=== PATIENT | female | born 1940 | race Caucasian/White ===

== ENCOUNTER 2021-07-26 20:12 | Inpatient (IN) ==
[2021-07-27] MEDS ORDERED: Nitroglycerin 0.4 MG TAB.SUBL SL PRN (21:14)
[2021-07-27] MEDS ORDERED: Dextrose Gel 15 GM/37.5 ML TUBE PO PRN ×2 (21:17)
[2021-07-27] MEDS ORDERED: D5% in Water 1,000 ML IVC PRN (21:17)
[2021-07-27] MEDS ORDERED: *HR* Dextrose 50 % in Water (Vial) 50 ML VIAL IVP PRN (21:17)
[2021-07-28] MEDS: *HR* Enoxaparin 30 MG/0.3 ML SYRINGE SQ SCH (06:07)
[2021-07-28 08:10] LABS: Calcium 8.3 mg/dL (8.6-10.3); Potassium 4.3 mEq/L (3.5-5.1)
[2021-07-28 08:46] LABS: Basophils % 0.3 %; Eosinophils # 0.2 K/mcL (0.0-0.6); Eosinophils % 2.5 %; Hematocrit 24.6 % (35.3-44.9); Hemoglobin 8.4 g/dL (11.5-15.4); Immature Granulocytes % 0.3 % (0-4); Lymphocytes # 1.5 K/mcL (0.6-4.6); Lymphocytes % 23.2 %; Mean Corpuscular HGB Conc 34.1 g/dL (31.6-35.5); Mean Corpuscular Hemoglobin 31.8 pg (28.0-33.3); Mean Corpuscular Volume 93.2 fL (83.0-100.0); Mean Platelet Volume 13.1 fL (9.4-12.4); Monocytes # 0.4 K/mcL (0.0-1.3); Neutrophils # 4.2 K/mcL (1.6-8.9); Platelet Count 180 K/mcL (140-400); Red Blood Count 2.64 M/mcL (3.82-4.97); Red Cell Distribution Width 13.7 % (11.5-14.5); Segmented Neutrophils % 66.7 %; White Blood Count 6.3 K/mcL (4.3-11.1)
[2021-07-28] MEDS: Cyanocobalamin (B-12) 1,000 MCG TABLET PO SCH (09:37)
[2021-07-28] MEDS: Aspirin Enteric Coated 81 MG Tablet PO SCH (09:37)
[2021-07-28] MEDS: GlipiZIDE 5 MG TABLET PO SCH (09:37)
[2021-07-28] MEDS: allopurinoL 100 MG TABLET PO SCH ×2 (09:37→22:19)
[2021-07-28] MEDS: Isosorbide MONOnitrate (24 HR) 30 MG TAB.ER.24H PO SCH (09:37)
[2021-07-28] MEDS: Furosemide 40 MG TABLET PO SCH (09:38)
[2021-07-28] MEDS: Metoprolol XL (24 HR) Succ 25 MG TAB.ER.24H PO SCH (09:38)
[2021-07-28] MEDS: Ranolazine 500 MG TAB.ER.12H PO SCH ×2 (09:38→22:19)
[2021-07-28] MEDS: Insulin DETEMIR 100 UNIT/ML X5UNITS SUBQ SCH ×2 (09:38→22:20)
[2021-07-28] MEDS: Insulin LISPRO 300 UNITS/3 ML VIAL SUBQ SCH ×3 (09:44→19:27)
[2021-07-28] MEDS ORDERED: Insulin DETEMIR 100 UNIT/ML per UNIT SUBQ ONE (22:10)
[2021-07-28] MEDS: cephALEXin 500 MG CAPSULE PO SCH (22:20)
[2021-07-29] MEDS: *HR* Enoxaparin 30 MG/0.3 ML SYRINGE SQ SCH (06:08)
[2021-07-29] MEDS: Insulin DETEMIR 100 UNIT/ML X5UNITS SUBQ SCH ×2 (09:14→20:54)
[2021-07-29] MEDS: Insulin LISPRO 300 UNITS/3 ML VIAL SUBQ SCH ×3 (09:14→16:34)
[2021-07-29] MEDS: Isosorbide MONOnitrate (24 HR) 30 MG TAB.ER.24H PO SCH (09:37)
[2021-07-29] MEDS: Furosemide 40 MG TABLET PO SCH (09:38)
[2021-07-29] MEDS: cephALEXin 500 MG CAPSULE PO SCH ×2 (09:38→20:53)
[2021-07-29] MEDS: GlipiZIDE 5 MG TABLET PO SCH (09:38)
[2021-07-29] MEDS: Aspirin Enteric Coated 81 MG Tablet PO SCH (09:38)
[2021-07-29] MEDS: allopurinoL 100 MG TABLET PO SCH ×2 (09:38→20:53)
[2021-07-29] MEDS: Cyanocobalamin (B-12) 1,000 MCG TABLET PO SCH (09:40)
[2021-07-29] MEDS: Metoprolol XL (24 HR) Succ 25 MG TAB.ER.24H PO SCH (09:40)
[2021-07-29] MEDS: Ranolazine 500 MG TAB.ER.12H PO SCH ×2 (09:40→20:53)
[2021-07-30] MEDS: *HR* Enoxaparin 30 MG/0.3 ML SYRINGE SQ SCH (06:33)
[2021-07-30] MEDS: Insulin DETEMIR 100 UNIT/ML X5UNITS SUBQ SCH (10:01)
[2021-07-30] MEDS: Insulin LISPRO 300 UNITS/3 ML VIAL SUBQ SCH ×3 (10:01→17:39)
[2021-07-30] MEDS: Metoprolol XL (24 HR) Succ 25 MG TAB.ER.24H PO SCH (10:10)
[2021-07-30] MEDS: Isosorbide MONOnitrate (24 HR) 30 MG TAB.ER.24H PO SCH (10:10)
[2021-07-30] MEDS: cephALEXin 500 MG CAPSULE PO SCH ×2 (10:11→22:06)
[2021-07-30] MEDS: allopurinoL 100 MG TABLET PO SCH ×2 (10:11→22:06)
[2021-07-30] MEDS: Ranolazine 500 MG TAB.ER.12H PO SCH ×2 (10:11→22:05)
[2021-07-30] MEDS: Furosemide 40 MG TABLET PO SCH (10:11)
[2021-07-30] MEDS: Aspirin Enteric Coated 81 MG Tablet PO SCH (10:11)
[2021-07-30] MEDS: Acetaminophen 325 MG TABLET PO PRN (22:06)
[2021-07-31] MEDS: Insulin DETEMIR 100 UNIT/ML X5UNITS SUBQ SCH (00:13)
[2021-07-31] MEDS: *HR* Enoxaparin 30 MG/0.3 ML SYRINGE SQ SCH (06:02)
[2021-07-31 07:43] LABS: Hematocrit 26.6 % (35.3-44.9); Hemoglobin 9.3 g/dL (11.5-15.4); Mean Corpuscular Hemoglobin 31.7 pg (28.0-33.3); Mean Corpuscular Volume 90.8 fL (83.0-100.0); Mean Platelet Volume 13.7 fL (9.4-12.4); Platelet Count 179 K/mcL (140-400); Red Blood Count 2.93 M/mcL (3.82-4.97); Red Cell Distribution Width 13.7 % (11.5-14.5); White Blood Count 9.4 K/mcL (4.3-11.1)
[2021-07-31 08:05] LABS: Calcium 8.8 mg/dL (8.6-10.3)
[2021-07-31] MEDS: Insulin LISPRO 300 UNITS/3 ML VIAL SUBQ SCH ×3 (09:36→16:39)
[2021-07-31] MEDS: cephALEXin 500 MG CAPSULE PO SCH (09:42)
[2021-07-31] MEDS: Furosemide 40 MG TABLET PO SCH (09:42)
[2021-07-31] MEDS: Aspirin 81 MG TAB.CHEW PO SCH (09:55)
[2021-07-31] MEDS: Ranolazine 500 MG TAB.ER.12H PO SCH ×2 (09:57→22:43)
[2021-07-31] MEDS: allopurinoL 100 MG TABLET PO SCH ×2 (10:03→22:43)
[2021-07-31] MEDS: Furosemide 40 MG/4 ML VIAL IVP SCH (22:43)
[2021-08-01] MEDS ORDERED: Insulin DETEMIR 100 UNIT/ML per UNIT SUBQ ONE (08:42)
[2021-08-01] MEDS: allopurinoL 100 MG TABLET PO SCH ×2 (09:00→20:27)
[2021-08-01] MEDS: Ranolazine 500 MG TAB.ER.12H PO SCH ×2 (09:00→20:26)
[2021-08-01] MEDS: Aspirin 81 MG TAB.CHEW PO SCH (09:00)
[2021-08-01] MEDS: *HR* Enoxaparin 30 MG/0.3 ML SYRINGE SQ SCH (09:01)
[2021-08-01] MEDS: Furosemide 40 MG/4 ML VIAL IVP SCH ×2 (09:03→20:27)
[2021-08-01] MEDS: Insulin LISPRO 300 UNITS/3 ML VIAL SUBQ SCH ×3 (09:05→17:11)
[2021-08-01] MEDS: Aspirin Enteric Coated 81 MG Tablet PO SCH (11:03)
[2021-08-01] MEDS: Isosorbide MONOnitrate (24 HR) 30 MG TAB.ER.24H PO SCH (11:03)
[2021-08-01] MEDS: Metoprolol XL (24 HR) Succ 25 MG TAB.ER.24H PO SCH (11:04)
[2021-08-02] MEDS: *HR* Enoxaparin 30 MG/0.3 ML SYRINGE SQ SCH (06:16)
[2021-08-02] MEDS: Aspirin 81 MG TAB.CHEW PO SCH (08:28)
[2021-08-02] MEDS: Furosemide 40 MG/4 ML VIAL IVP SCH ×2 (08:28→21:13)
[2021-08-02] MEDS: allopurinoL 100 MG TABLET PO SCH ×2 (08:29→21:13)
[2021-08-02] MEDS: Ranolazine 500 MG TAB.ER.12H PO SCH ×2 (08:30→21:13)
[2021-08-02] MEDS: Insulin LISPRO 300 UNITS/3 ML VIAL SUBQ SCH ×3 (08:30→16:17)
[2021-08-02 15:31] LABS: Basophils % 0.4 %; Eosinophils # 0.2 K/mcL (0.0-0.6); Eosinophils % 1.9 %; Hematocrit 28.9 % (35.3-44.9); Hemoglobin 9.9 g/dL (11.5-15.4); Immature Granulocytes % 0.4 % (0-4); Lymphocytes # 1.6 K/mcL (0.6-4.6); Mean Corpuscular HGB Conc 34.3 g/dL (31.6-35.5); Mean Corpuscular Hemoglobin 31.3 pg (28.0-33.3); Mean Corpuscular Volume 91.5 fL (83.0-100.0); Mean Platelet Volume 12.8 fL (9.4-12.4); Monocytes # 0.5 K/mcL (0.0-1.3); Monocytes % 6.3 %; Neutrophils # 6.1 K/mcL (1.6-8.9); Platelet Count 233 K/mcL (140-400); Red Blood Count 3.16 M/mcL (3.82-4.97); Red Cell Distribution Width 13.8 % (11.5-14.5); White Blood Count 8.4 K/mcL (4.3-11.1)
[2021-08-02 15:47] LABS: Calcium 9.2 mg/dL (8.6-10.3); Potassium 3.9 mEq/L (3.5-5.1)
[2021-08-03] MEDS: *HR* Enoxaparin 30 MG/0.3 ML SYRINGE SQ SCH (06:33)
[2021-08-03] MEDS: Insulin LISPRO 300 UNITS/3 ML VIAL SUBQ SCH ×3 (10:28→17:33)
[2021-08-03] MEDS: Ranolazine 500 MG TAB.ER.12H PO SCH ×2 (10:40→20:08)
[2021-08-03] MEDS: Aspirin 81 MG TAB.CHEW PO SCH (10:40)
[2021-08-03] MEDS: allopurinoL 100 MG TABLET PO SCH ×2 (10:43→20:08)
[2021-08-03] MEDS: Furosemide 40 MG/4 ML VIAL IVP SCH ×2 (10:43→20:08)
[2021-08-03] MEDS ORDERED: Insulin DETEMIR 100 UNIT/ML per UNIT SUBQ ONE (19:31)
[2021-08-04] MEDS: *HR* Enoxaparin 30 MG/0.3 ML SYRINGE SQ SCH (05:53)
[2021-08-04 06:45] LABS: Hematocrit 25.1 % (35.3-44.9); Hemoglobin 8.6 g/dL (11.5-15.4); Mean Corpuscular HGB Conc 34.3 g/dL (31.6-35.5); Mean Corpuscular Hemoglobin 31.6 pg (28.0-33.3); Mean Corpuscular Volume 92.3 fL (83.0-100.0); Mean Platelet Volume 13.2 fL (9.4-12.4); Platelet Count 195 K/mcL (140-400); Red Blood Count 2.72 M/mcL (3.82-4.97); Red Cell Distribution Width 14.1 % (11.5-14.5)
[2021-08-04 06:54] LABS: Calcium 8.8 mg/dL (8.6-10.3); Magnesium 1.8 mg/dL (1.6-2.6); Potassium 4.1 mEq/L (3.5-5.1)
[2021-08-04] MEDS: Aspirin 81 MG TAB.CHEW PO SCH (09:30)
[2021-08-04] MEDS: allopurinoL 100 MG TABLET PO SCH ×2 (09:30→20:36)
[2021-08-04] MEDS: Ranolazine 500 MG TAB.ER.12H PO SCH ×2 (09:30→20:37)
[2021-08-04] MEDS: Insulin LISPRO 300 UNITS/3 ML VIAL SUBQ SCH ×3 (09:31→18:17)
[2021-08-04] MEDS: Furosemide 40 MG TABLET PO SCH ×2 (09:47→18:18)
[2021-08-05] MEDS: *HR* Enoxaparin 30 MG/0.3 ML SYRINGE SQ SCH (05:57)
[2021-08-05] MEDS: Aspirin 81 MG TAB.CHEW PO SCH (08:46)
[2021-08-05] MEDS: Ranolazine 500 MG TAB.ER.12H PO SCH ×2 (08:46→20:57)
[2021-08-05] MEDS: allopurinoL 100 MG TABLET PO SCH ×2 (08:46→20:57)
[2021-08-05] MEDS: Furosemide 40 MG TABLET PO SCH ×2 (08:47→16:47)
[2021-08-05] MEDS: Insulin LISPRO 300 UNITS/3 ML VIAL SUBQ SCH ×3 (08:47→16:40)
[2021-08-06] MEDS: *HR* Enoxaparin 30 MG/0.3 ML SYRINGE SQ SCH (05:35)
[2021-08-06] MEDS: Ranolazine 500 MG TAB.ER.12H PO SCH ×2 (08:41→21:14)
[2021-08-06] MEDS: Furosemide 40 MG TABLET PO SCH ×2 (08:41→16:35)
[2021-08-06] MEDS: allopurinoL 100 MG TABLET PO SCH ×2 (08:41→21:14)
[2021-08-06] MEDS: Aspirin 81 MG TAB.CHEW PO SCH (08:41)
[2021-08-06] MEDS: Insulin LISPRO 300 UNITS/3 ML VIAL SUBQ SCH ×3 (08:42→16:31)
[2021-08-07] MEDS: *HR* Enoxaparin 30 MG/0.3 ML SYRINGE SQ SCH (05:29)
[2021-08-07 07:30] LABS: Hematocrit 24.6 % (35.3-44.9); Hemoglobin 8.4 g/dL (11.5-15.4); Mean Corpuscular HGB Conc 34.1 g/dL (31.6-35.5); Mean Corpuscular Hemoglobin 31.8 pg (28.0-33.3); Mean Corpuscular Volume 93.2 fL (83.0-100.0); Mean Platelet Volume 13.5 fL (9.4-12.4); Platelet Count 168 K/mcL (140-400); Red Blood Count 2.64 M/mcL (3.82-4.97); Red Cell Distribution Width 14.5 % (11.5-14.5); White Blood Count 6.2 K/mcL (4.3-11.1)
[2021-08-07 07:46] LABS: Calcium 9.1 mg/dL (8.6-10.3); Potassium 4.5 mEq/L (3.5-5.1)
[2021-08-07] MEDS: Insulin LISPRO 300 UNITS/3 ML VIAL SUBQ SCH ×3 (09:41→16:30)
[2021-08-07] MEDS: Furosemide 40 MG TABLET PO SCH ×2 (09:42→17:05)
[2021-08-07] MEDS: Ranolazine 500 MG TAB.ER.12H PO SCH ×2 (09:42→20:31)
[2021-08-07] MEDS: allopurinoL 100 MG TABLET PO SCH ×2 (09:43→20:31)
[2021-08-07] MEDS: Aspirin 81 MG TAB.CHEW PO SCH (09:43)
[2021-08-08] MEDS: *HR* Enoxaparin 30 MG/0.3 ML SYRINGE SQ SCH (05:43)
[2021-08-08] MEDS: Ranolazine 500 MG TAB.ER.12H PO SCH ×2 (07:51→20:06)
[2021-08-08] MEDS: Furosemide 40 MG TABLET PO SCH ×2 (07:52→17:22)
[2021-08-08] MEDS: Aspirin 81 MG TAB.CHEW PO SCH (07:52)
[2021-08-08] MEDS: allopurinoL 100 MG TABLET PO SCH ×2 (07:52→20:04)
[2021-08-08] MEDS: Insulin LISPRO 300 UNITS/3 ML VIAL SUBQ SCH ×3 (07:55→16:57)
[2021-08-08] MEDS ORDERED: Ipratropium/Albuterol Neb 3 ML IH PRN (14:38)
[2021-08-08] MEDS ORDERED: Sennosides 8.6 MG TABLET PO PRN (14:56)
[2021-08-08] MEDS: polyethylene glycoL 3350 17 GM POWD.PACK PO SCH (17:21)
[2021-08-08] MEDS ORDERED: Insulin DETEMIR 100 UNIT/ML per UNIT SUBQ ONE (19:56)
[2021-08-08] MEDS: Ipratropium/Albuterol Neb 3 ML IH SCH (22:32)
[2021-08-09] MEDS ORDERED: hydrOXYzine pamoate 25 MG CAPSULE PO ONE (03:06)
[2021-08-09] MEDS: Ipratropium/Albuterol Neb 3 ML IH SCH ×4 (03:46→21:47)
[2021-08-09] MEDS: *HR* Enoxaparin 30 MG/0.3 ML SYRINGE SQ SCH (06:02)
[2021-08-09 07:49] LABS: Basophils % 0.1 %; Hematocrit 25.4 % (35.3-44.9); Hemoglobin 8.6 g/dL (11.5-15.4); Immature Granulocytes % 0.4 % (0-4); Lymphocytes # 0.4 K/mcL (0.6-4.6); Lymphocytes % 5.2 %; Mean Corpuscular HGB Conc 33.9 g/dL (31.6-35.5); Mean Corpuscular Hemoglobin 31.6 pg (28.0-33.3); Mean Corpuscular Volume 93.4 fL (83.0-100.0); Mean Platelet Volume 13.8 fL (9.4-12.4); Monocytes # 0.4 K/mcL (0.0-1.3); Monocytes % 4.8 %; Neutrophils # 7.3 K/mcL (1.6-8.9); Platelet Count 157 K/mcL (140-400); Red Blood Count 2.72 M/mcL (3.82-4.97); Red Cell Distribution Width 15.2 % (11.5-14.5); Segmented Neutrophils % 89.5 %; White Blood Count 8.2 K/mcL (4.3-11.1)
[2021-08-09 08:03] LABS: Calcium 8.8 mg/dL (8.6-10.3); Potassium 5.5 mEq/L (3.5-5.1)
[2021-08-09] MEDS: allopurinoL 100 MG TABLET PO SCH ×2 (08:31→21:07)
[2021-08-09] MEDS: Aspirin 81 MG TAB.CHEW PO SCH (08:31)
[2021-08-09] MEDS: Ranolazine 500 MG TAB.ER.12H PO SCH ×2 (08:31→21:07)
[2021-08-09] MEDS: polyethylene glycoL 3350 17 GM POWD.PACK PO SCH (08:32)
[2021-08-09] MEDS: Furosemide 40 MG TABLET PO SCH (08:32)
[2021-08-09] MEDS: Insulin LISPRO 300 UNITS/3 ML VIAL SUBQ SCH ×3 (08:57→17:06)
[2021-08-09] MEDS: *HR* LORazepam 0.5 MG TABLET PO PRN (21:24)
[2021-08-10] MEDS: Ipratropium/Albuterol Neb 3 ML IH SCH ×4 (04:08→22:56)
[2021-08-10] MEDS: *HR* Enoxaparin 30 MG/0.3 ML SYRINGE SQ SCH (05:59)
[2021-08-10] MEDS: Acetaminophen 325 MG TABLET PO PRN (06:06)
[2021-08-10 09:36] LABS: Calcium 8.6 mg/dL (8.6-10.3); Potassium 5.4 mEq/L (3.5-5.1)
[2021-08-10] MEDS: Ranolazine 500 MG TAB.ER.12H PO SCH ×2 (10:05→20:27)
[2021-08-10] MEDS: polyethylene glycoL 3350 17 GM POWD.PACK PO SCH (10:05)
[2021-08-10] MEDS: allopurinoL 100 MG TABLET PO SCH ×2 (10:06→20:27)
[2021-08-10] MEDS: Aspirin 81 MG TAB.CHEW PO SCH (10:06)
[2021-08-10] MEDS: Insulin LISPRO 300 UNITS/3 ML VIAL SUBQ SCH ×3 (10:06→18:13)
[2021-08-10] MEDS: Furosemide 20 MG TABLET PO SCH (18:19)
[2021-08-10] MEDS: *HR* LORazepam 0.5 MG TABLET PO PRN (20:37)
[2021-08-11] MEDS: Ipratropium/Albuterol Neb 3 ML IH SCH ×3 (04:42→17:53)
[2021-08-11] MEDS: *HR* Enoxaparin 30 MG/0.3 ML SYRINGE SQ SCH (06:44)
[2021-08-11 07:36] LABS: Calcium 8.9 mg/dL (8.6-10.3); Magnesium 2.2 mg/dL (1.6-2.6); Potassium 5.1 mEq/L (3.5-5.1)
[2021-08-11 09:34] VITALS: BP 139/97; PULSE 88; TEMP 97.7
[2021-08-11] MEDS ORDERED: Insulin DETEMIR 100 UNIT/ML per UNIT SUBQ ONE (09:35)
[2021-08-11] MEDS: polyethylene glycoL 3350 17 GM POWD.PACK PO SCH (09:39)
[2021-08-11] MEDS: Aspirin 81 MG TAB.CHEW PO SCH (09:40)
[2021-08-11] MEDS: allopurinoL 100 MG TABLET PO SCH (09:41)
[2021-08-11] MEDS: Ranolazine 500 MG TAB.ER.12H PO SCH (09:42)
[2021-08-11] MEDS: Insulin LISPRO 300 UNITS/3 ML VIAL SUBQ SCH ×3 (09:42→16:57)
[2021-08-11] MEDS: Furosemide 20 MG TABLET PO SCH ×2 (09:42→16:56)
[2021-08-11 10:17] VITALS: RESP 24; O2SAT 99
== END 2021-08-11 17:53 | disposition hospice, inpatient (51) | DRG 945 ==
LOC: INPPIK 07-27 19:39
PROVIDERS: ADMIT Family Medicine; ATTEND Family Medicine